=== PATIENT | female | born 1990 | race African-American/Black ===

== ENCOUNTER 2016-06-22 15:50 | Emergency (ER) | payer MEDICAID ==
[2016-06-22] MEDS ORDERED: LORazepam TAB(*) 1 MG PO ONE ×2 (16:06→17:17)
[2016-06-22 17:14] VITALS: BP 123/96
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
== END 2016-06-22 17:17 | disposition home or self-care (01) ==
LOC: ED 15:50
DX: F41.0 Panic disorder [episodic paroxysmal anxiety] (principal); R07.9 Chest pain, unspecified; R06.02 Shortness of breath; F17.210 Nicotine dependence, cigarettes, uncomplicated
CPT/HCPCS: 93005; 99283; A9270-GY

== ENCOUNTER 2016-12-26 17:12 | Emergency (ER) | payer MEDICAID, OTHER ==
[2016-12-26] MEDS ORDERED: Pantoprazole TAB (NF) 40 MG TAB PO ONE (19:34)
[2016-12-26] MEDS ORDERED: Omeprazole CAP* 20 MG PO ONE (20:00)
[2016-12-26 20:06] LABS: Hematocrit 36 % (35-47); Hemoglobin 12.1 g/dl (12.0-16.0); Mean Corpuscular HGB Conc 33 g/dl (31-36); Mean Corpuscular Hemoglobin 29 pg (27-31); Mean Corpuscular Volume 86 fL (80-97); Mean Platelet Volume 8 um3 (7.4-10.4); Red Blood Count 4.22 10^6/ul (4.0-5.4); Red Cell Distribution Width 14 % (10.5-15); White Blood Count 9.9 10^3/ul (3.5-10.8)
[2016-12-26 20:19] LABS: ALT 31 U/L (7-52); AST 12 U/L (13-39); Albumin 4.4 g/dL (3.2-5.2); Alkaline Phosphatase 77 U/L (34-104); Anion Gap 6 mmol/L (2-11); BUN/Creatinine Ratio 14.8 (8-20); Blood Urea Nitrogen 12 mg/dL (6-24); CO2 Carbon Dioxide 23 mmol/L (22-32); Calcium 9.4 mg/dL (8.6-10.3); Chloride 107 mmol/L (101-111); EGFR African American 110.8 (>60); EGFR Non-African American 86.2 (>60); Globulin 3.1 g/dL (2-4); Glucose 95 mg/dL (70-100); Lipase 31 U/L (11.0-82.0); Potassium 3.9 mmol/L (3.5-5.0); Sodium 136 mmol/L (133-145); Total Protein 7.5 g/dL (6.4-8.9)
[2016-12-26 20:46] VITALS: BP 127/67
[2016-12-26 20:46] LABS: Urine Bacteria Absent (Absent); Urine Bilirubin Negative (Negative); Urine Glucose Negative (Negative); Urine Nitrite Negative (Negative)
[2016-12-26] MEDS ORDERED: Acetaminophen TAB* 325 MG PO ONE (20:50)
--- NOTE | 2016-12-26 21:04 | RAD ---
CLINICAL HISTORY: Left flank pain COMPARISON: September 26, 2012 TECHNIQUE: Multiple contiguous axial CT scans were obtained of the abdomen and pelvis, without intravenous contrast enhancement. Coronal and sagittal multiplanar reformations are submitted for review. Oral contrast was not administered. FINDINGS: The study is limited by the lack of intravenous contrast. This limits evaluation of the solid organs and vasculature. LUNG BASES: The lung bases are clear. LIVER: The liver is diffusely low in attenuation compared to the spleen. There are no focal hepatic parenchymal masses. BILE DUCTS: There is no intrahepatic or extrahepatic biliary dilatation. GALLBLADDER: The gallbladder is not visualized. Surgical clips are noted in the gallbladder fossa. PANCREAS: The pancreas is normal, without mass or ductal dilatation. SPLEEN: Normal in size and appearance. UPPER GI TRACT: Evaluation of the gastrointestinal tract is limited by incomplete gastric distention. The upper GI tract is unremarkable. SMALL BOWEL AND MESENTERY: The small bowel is normal in contour, course, and caliber. There is no obstruction or dilatation. COLON: The colon is normal in contour, course, caliber. There is no pericolonic inflammatory change. There is a tubular, vermiform, hollow viscus that is blind ending, and originates from the cecum, consistent with a normal appendix. There is no periappendiceal inflammatory change. This is best seen on axial images 15 through 132 ADRENALS: Normal bilaterally. KIDNEYS: The kidneys are normal in shape, size, contour, and axis. There is no hydronephrosis or nephrolithiasis. BLADDER: The bladder is incompletely distended but is grossly normal. PELVIC ORGANS: The uterus and adnexa are grossly normal for technique. An IUD is noted. This may not be centered within the endometrial cavity based on the appearance on CT. AORTA: The aorta is normal. IVC: Unremarkable LYMPH NODES: There is no lymphadenopathy by size criteria. ABDOMINAL WALL: There is no evidence for abdominal wall hernia. BONES AND SOFT TISSUES: Unremarkable OTHER: None IMPRESSION: 1. FATTY LIVER. 2. NO HYDRONEPHROSIS OR NEPHROLITHIASIS. 3. AN IUD IS NOTED. THIS MAY NOT BE LOCATED CENTRALLY WITHIN THE ENDOMETRIAL CAVITY BASED ON THE CT APPEARANCE
[2016-12-26] MEDS ORDERED: Sulfamethox/Trimethoprim DS 800/160* TAB PO ONE (21:09)
--- NOTE | 2016-12-26 21:19 | ED ---
Jamey Dillon Rebecca, scribed for Shira Ramirezuel on 12/26/16 at 1931 . Abdominal Pain/Female - HPI Summary HPI Summary: Pt is a 26 y/o F who presents to ED c/o upper abdominal pain. Sx began 3 days ago and have been constant since onset. Pain is currently severe, ranked 8/10 and characterized as sharp. Sx aggravated and alleviated by nothing. Additionally c/o N/V/D. PSHx cholecystectomy. - History of Current Complaint Chief Complaint: EDAbdPain Stated Complaint: ABD PAINS Time Seen by Provider: 12/26/16 19:23 Hx Obtained From: Patient Onset/Duration: Lasting Days - 3 days, Still Present Severity Currently: Severe Pain Intensity: 8 Pain Scale Used: 0-10 Numeric Location: Other - Upper abdomen Character: Sharp Aggravating Factor(s): Nothing Alleviating Factor(s): Nothing Associated Signs and Symptoms: Positive: Nausea, Vomiting, Diarrhea Allergies/Adverse Reactions: Allergies Allergy/AdvReac Type Severity Reaction Status Date / Time No Known Allergies Allergy Verified 12/26/16 17:23 PMH/Surg Hx/FS Hx/Imm Hx Endocrine/Hematology History: Denies: Hx Diabetes Neurological History: Denies: Hx Seizures Psychiatric History: Reports: Hx Anxiety, Hx Depression - Surgical History Surgery Procedure, Year, and Place: CHOLECYSTECTOMY Infectious Disease History: No Infectious Disease History: Denies: Traveled Outside the [place] in Last 30 Days - Family History Known Family History: Positive: Cardiac Disease, Hypertension - Social History Alcohol Use: Occasionally Hx Substance Use: Yes Substance Use Type: Reports: Marijuana Substance Use Comment - Amount & Last Used: daily Hx Tobacco Use: Yes Smoking Status (MU): Former Smoker Type: Cigars Review of Systems Negative: Fever Positive: Abdominal Pain - Upper, Vomiting, Diarrhea, Nausea All Other Systems Reviewed And Are Negative: Yes Physical Exam - Summary Physical Exam Summary: Appearance: Well appearing, no pain distress Skin: warm, dry, reflects adequate perfusion Head/face: normal Eyes: EOMI, MAVIS ENT: normal Neck: supple, nontender Respiratory: CTA, edilson th sounds present Cardiovascular: RRR, pulses symmetrical Abdomen: tender in the epigastic and LUQ regions, soft Bowel: present Musculoskeletal: normal, strength/ROM intact Neuro: normal, sensory motor intact, A&Ox3 Triage Information Reviewed: Yes Vital Signs On Initial Exam: Initial Vitals Temp Pulse Resp BP Pulse Ox 97.4 F 84 18 124/75 100 12/26/16 17:17 12/26/16 17:17 12/26/16 17:17 12/26/16 17:17 12/26/16 17:17 Vital Signs Reviewed: Yes - [place] Coma Scale Coma Scale Total: 15 Diagnostics - Vital Signs Vital Signs Temp Pulse Resp BP Pulse Ox 12/26/16 18:50 98.7 F 80 16 124/83 99 12/26/16 17:17 97.4 F 84 18 124/75 100 - Laboratory Result Diagrams: 12/26/16 19:56 12/26/16 19:56 Lab Statement: Any lab studies that have been ordered have been reviewed, and results considered in the medical decision making process. - CT CT Abd/Pel CT Interpretation: No Acute Changes - 1. FATTY LIVER. 2. NO HYDRONEPHROSIS OR NEPHROLITHIASIS. 3. AN IUD IS NOTED. THIS MAY NOT BE LOCATED CENTRALLY WITHIN THE ENDOMETRIAL CAVITY BASED ON THE CT APPEARANCE ED physician reviewed this radiology report and agrees. CT Interpretation Completed By: Radiologist - EKG 1940 Cardiac Rate: NL - 83 bpm EKG Rhythm: Sinus Rhythm EKG Interpretation: No acute changes Re-Evaluation - Re-Evaluation First Eval Re-Evaluation Time: 21:12 Change: Improved Comment: Discussed CT results with the pt. Abdominal Pain Fem Course/Dx - Course Course Of Treatment: Pt is a 26 y/o F who presents to ED c/o upper abdominal pain. Sx began 3 days ago and have been constant since onset. Pain is currently severe, ranked 8/10 and characterized as sharp. Sx aggravated and alleviated by nothing. Additionally c/o N/V/D. PSHx cholecystectomy. EKG reveals sinus rhythm with no acute changes. CT Abd/Pel reveals "1. FATTY LIVER. 2. NO HYDRONEPHROSIS OR NEPHROLITHIASIS. 3. AN IUD IS NOTED. THIS MAY NOT BE LOCATED CENTRALLY WITHIN THE ENDOMETRIAL CAVITY BASED. ON THE CT APPEARANCE." UA reveals urine color: yellow, appearance: clear, blood: 2+, leukocyte esterase : 1+, WBC: 1+, RBC: 1+ and negative for ptoein, ketones and nitrate. In the ED course, pt was administered Tylenol and Prilosec. Pt will be D/C to home with Dx of UTI and abdominal pain with Rx for Protonix and Bactrim and a follow up with her PCP. She understands and agrees. Elevated BP noted and advised to f/u with PCP. - Diagnoses Provider Diagnoses: Abdominal pain, UTI (urinary tract infection) Discharge - Discharge Plan Condition: Stable Disposition: HOME Prescriptions: Pantoprazole TAB (NF) [Protonix TAB (NF)] 40 mg PO DAILY #30 tab Sulfamethox/Trimethoprim DS* [Bactrim DS 800/160 TAB*] 1 tab PO BID #10 tab Patient Education Materials: Acute Abdominal Pain (ED), Urinary Tract Infection in Women (ED) Referrals: [facility] [place] [facility] [Outside] The documentation as recorded by the Jamey hernandez Rebecca accurately reflects the service I personally performed and the decisions made by James pinzon Emmanuel.
== END 2016-12-26 21:43 | disposition home or self-care (01) ==
LOC: ED 17:12
DX: R11.2 Nausea with vomiting, unspecified (principal); R19.7 Diarrhea, unspecified; R10.10 Upper abdominal pain, unspecified; N39.0 Urinary tract infection, site not specified; Z87.891 Personal history of nicotine dependence
CPT/HCPCS: 36415; 74176; 80053; 81003; 81015; 83690; 84484; 84702; 85025; 85610; 85730; 86703; 87077; 87086; 93005; 99284; A9270-GY

== ENCOUNTER 2017-08-15 15:28 | Emergency (ER) | payer OTHER ==
[2017-08-15] MEDS ORDERED: NS 0.9% 1000 ML* 1,000 ML IV ONE (17:33)
[2017-08-15] MEDS ORDERED: Lidocaine 2% VISCOUS* 15 ML UDC PO ONE (17:40)
[2017-08-15] MEDS ORDERED: Al Hydrox/Mg Hydrox/Simet LIQ* 30 ML UDC PO ONE (17:40)
[2017-08-15] MEDS ORDERED: Ketorolac INJ* 30 MG/ML 1 ML VIAL IV PUSH ONE (17:40)
[2017-08-15 18:16] LABS: ABS Basophils 0 10^3/ul (0-0.2); ABS Eosinophils 0.3 10^3/ul (0-0.6); ABS Lymphocytes 2.1 10^3/ul (1.0-4.8); ABS Monocytes 0.4 10^3/ul (0-0.8); ABS Neutrophils 7.4 10^3/ul (1.5-7.7); ABS Nucleated RBC 0 10^3/ul; Eosinophil % 3.1 % (0-6); Hematocrit 37 % (35-47); Hemoglobin 12.4 g/dl (12.0-16.0); Lymphocyte % 20.4 % (25-47); Mean Corpuscular HGB Conc 34 g/dl (31-36); Mean Corpuscular Hemoglobin 29 pg (27-31); Mean Corpuscular Volume 86 fL (80-97); Mean Platelet Volume 7.7 um3 (7.4-10.4); Nucleated Red Blood Cells % 0; Platelet Count 283 10^3/ul (150-450); Red Blood Count 4.29 10^6/ul (4.0-5.4); Red Cell Distribution Width 13 % (10.5-15); White Blood Count 10.3 10^3/ul (3.5-10.8)
[2017-08-15 18:33] LABS: EGFR Non-African American 89.3 (>60)
--- NOTE | 2017-08-15 19:12 | ED ---
HPI Chest Pain - HPI Summary HPI Summary: 27 female presents with headache, chest pain, abdominal pain today. She states she has had these symptoms before but never together. She admits to lightheaded. She states she has been nauseous but denies any vomiting. She has a past medical history of having her gallbladder removed. she is a smoker. She denies any family history of cardiac disease. She denies any cough. She was occasional shortness of breath. She states that the chest feels like a tightness in her chest. It also has a burning sensation. She states her headache is typical of her normal headaches. She hasn't tried anything for her headache. This is not the worst headache of her life. She denies a sore throat. She denies any fevers. She denies any neck stiffness. She denies any pain with urination. - History of Current Complaint Chief Complaint: EDGeneral Time Seen by Provider: 08/15/17 17:27 Pain Intensity: 8 - Allergy/Home Medications Allergies/Adverse Reactions: Allergies Allergy/AdvReac Type Severity Reaction Status Date / Time No Known Allergies Allergy Verified 08/15/17 15:42 PMH/Surg Hx/FS Hx/Imm Hx Endocrine/Hematology History: Denies: Hx Diabetes Neurological History: Denies: Hx Seizures Psychiatric History: Reports: Hx Anxiety, Hx Depression - Surgical History Surgery Procedure, Year, and Place: CHOLECYSTECTOMY Infectious Disease History: No Infectious Disease History: Denies: Traveled Outside the [place] in Last 30 Days - Family History Known Family History: Positive: Cardiac Disease, Hypertension - Social History Alcohol Use: Occasionally Hx Substance Use: Yes Substance Use Type: Reports: Marijuana Substance Use Comment - Amount & Last Used: daily Hx Tobacco Use: Yes Smoking Status (MU): Former Smoker Type: Cigars Review of Systems Negative: Fever Positive: Chest Pain Positive: Shortness Of Breath Positive: Abdominal Pain Positive: Headache All Other Systems Reviewed And Are Negative: Yes Physical Exam Triage Information Reviewed: Yes Vital Signs On Initial Exam: Initial Vitals Temp Pulse Resp BP Pulse Ox 97.9 F 80 20 131/73 98 08/15/17 15:30 08/15/17 15:30 08/15/17 15:30 08/15/17 15:30 08/15/17 15:30 Vital Signs Reviewed: Yes Appearance: Positive: Well-Appearing Skin: Positive: Warm, Dry Head/Face: Positive: Normal Head/Face Inspection Eyes: Positive: Normal, Conjunctiva Clear Respiratory/Lung Sounds: Positive: Clear to Auscultation, Breath Sounds Present Cardiovascular: Positive: Normal, RRR Abdomen Description: Positive: Soft, Other: - mild epigastric pain Bowel Sounds: Positive: Present Musculoskeletal: Positive: Normal Neurological: Positive: Sensory/Motor Intact, Alert, Oriented to Person Place, Time, CN Intact II-III Psychiatric: Positive: Normal Diagnostics - Vital Signs Vital Signs Temp Pulse Resp BP Pulse Ox 08/15/17 18:30 80 113/58 100 08/15/17 18:09 91 99 08/15/17 18:07 149/91 08/15/17 15:30 97.9 F 80 20 131/73 98 - Laboratory Lab Results: Lab Results 08/15/17 08/15/17 08/15/17 Range/Units 17:45 17:45 17:45 WBC 10.3 (3.5-10.8) 10^3/ul RBC 4.29 (4.0-5.4) 10^6/ul Hgb 12.4 (12.0-16.0) g/dl Hct 37 (35-47) % MCV 86 (80-97) fL MCH 29 (27-31) pg MCHC 34 (31-36) g/dl RDW 13 (10.5-15) % Plt Count 283 (150-450) 10^3/ul MPV 7.7 (7.4-10.4) um3 Neut % (Auto) 72.3 (38-83) % Lymph % (Auto) 20.4 L (25-47) % [place] % (Auto) 3.9 (0-7) % Eos % (Auto) 3.1 (0-6) % Baso % (Auto) 0.3 (0-2) % Absolute Neuts (auto) 7.4 (1.5-7.7) 10^3/ul Absolute Lymphs (auto) 2.1 (1.0-4.8) 10^3/ul Absolute Monos (auto) 0.4 (0-0.8) 10^3/ul Absolute Eos (auto) 0.3 (0-0.6) 10^3/ul Absolute Basos (auto) 0 (0-0.2) 10^3/ul Absolute Nucleated RBC 0 10^3/ul Nucleated RBC % 0 D-Dimer, Quantitative < 200 (Less Than 230) ng/mL Sodium 137 L (139-145) mmol/L Potassium 3.5 (3.5-5.0) mmol/L Chloride 105 (101-111) mmol/L Carbon Dioxide 22 (22-32) mmol/L Anion Gap 10 (2-11) mmol/L BUN 10 (6-24) mg/dL Creatinine 0.78 (0.51-0.95) mg/dL Est GFR ( Amer) 114.8 (>60) Est GFR (Non-Af Amer) 89.3 (>60) BUN/Creatinine Ratio 12.8 (8-20) Glucose 115 H (70-100) mg/dL Calcium 9.4 (8.6-10.3) mg/dL Total Bilirubin 0.50 (0.2-1.0) mg/dL AST 12 L (13-39) U/L ALT 31 (7-52) U/L Alkaline Phosphatase 80 (34-104) U/L Troponin I 0.00 (<0.04) ng/mL C-Reactive Protein 3.10 (< 5.00) mg/L Total Protein 7.7 (6.4-8.9) g/dL Albumin 4.3 (3.2-5.2) g/dL Globulin 3.4 (2-4) g/dL Albumin/Globulin Ratio 1.3 (1-3) Beta HCG, Quant < 0.60 mIU/mL Result Diagrams: 08/15/17 17:45 08/15/17 17:45 Lab Statement: Any lab studies that have been ordered have been reviewed, and results considered in the medical decision making process. - Radiology chest Xray Interpretation: No Acute Changes Radiology Interpretation Completed By: Radiologist - EKG No standard instances Cardiac Rate: NL EKG Rhythm: Sinus Rhythm EKG Interpretation: sinus rhythm Re-Evaluation - Re-Evaluation First Eval Change: Improved Comment: feeling better after GI cocktail and toradol. headache and abdominal pain resolved Chest Pain Course/Dx - Course Course Of Treatment: 27 female presents with headache, chest pain, abdominal pain today. She states she has had these symptoms before but never together. She admits to lightheaded. She states she has been nauseous but denies any vomiting. She has a past medical history of having her gallbladder removed. she is a smoker. She denies any family history of cardiac disease. She denies any cough. She was occasional shortness of breath. She states that the chest feels like a tightness in her chest. It also has a burning sensation. She states her headache is typical of her normal headaches. She hasn't tried anything for her headache. This is not the worst headache of her life. She denies a sore throat. She denies any fevers. She denies any neck stiffness. She denies any pain with urination. On exam has lungs clear to auscultation. Abdomen tenderness epigastric. Normal neuro exam. nonreproducible chest pain. lab within normal limits. EKG normal. Chest x-ray normal. patient feeling better after toradol and gi cocktail. all symptoms have resolved. will send home with nausea meds. patient understand and agrees with plan. - Chest Pain Differential Diagnosis/HQI/PQRI: Chest Wall, Lower Respiratory Infection, Pulmonary Embolism - Diagnoses Provider Diagnoses: Chest pain, Headache, Nausea Discharge - Sign-Out/Discharge Documenting (check all that apply): Discharge - Discharge Plan Condition: Good Disposition: HOME Prescriptions: Ondansetron ODT TAB* [Zofran 4 MG Odt TAB*] 4 mg PO Q6H PRN #12 tab.odt PRN Reason: Nausea Patient Education Materials: Noncardiac Chest Pain (ED) Referrals: No Primary Care Phys,NOPCP [Primary Care Provider] - Additional Instructions: Can take Zofran every 6 hours as needed for nausea Drink small amounts of fluid as tolerated Take ibuprofen or Tylenol for pain as needed every 6 hours Follow up with primary within 5 days Return to ED if develop any new or worsening symptoms - Billing Disposition and Condition Condition: GOOD Disposition: HOME
--- NOTE | 2017-08-15 19:24 | RAD ---
INDICATION: Chest pain and dizziness. COMPARISON: There are no prior studies available for comparison. TECHNIQUE: Dual-energy PA and lateral views of the chest were obtained. FINDINGS: The heart is within normal limits in size. Mediastinal and hilar contours appear within normal limits. The lungs are underinflated and clear. No pleural effusion is seen. IMPRESSION: NO EVIDENCE FOR ACUTE FINDING.
[2017-08-15 20:02] VITALS: BP 126/89
== END 2017-08-15 20:18 | disposition home or self-care (01) ==
LOC: ED 15:28
DX: R07.9 Chest pain, unspecified (principal); R51 Headache; R11.0 Nausea; Z87.891 Personal history of nicotine dependence; F41.9 Anxiety disorder, unspecified; F32.9 Major depressive disorder, single episode, unspecified
CPT/HCPCS: 36415; 71046; 80053; 84484; 84702; 85025; 85379; 86140; 93005; 96360; 96374; 99283; A9270-GY; J1885

== ENCOUNTER 2018-02-19 11:01 | Emergency (ER) | payer OTHER ==
[2018-02-19] MEDS ORDERED: LORazepam INJ* 2 MG/ML 1 ML VIAL IM ONE (11:04)
--- NOTE | 2018-02-19 11:12 | ED ---
Complex/Multi-Sys Presentation - HPI Summary HPI Summary: 28yo F with hx of anxiety presents with anxiousness, difficulty breathing, throat tightness and "feeling weird" since last night. She states she was out drinking (alcohol) and came home and went to bed. She awoke with these symptoms. Vomited once. Feeling nauseous. Denies CP, hand numbness or cramping. Not taking any meds. LMP 1wk ago. - History Of Current Complaint Time Seen by Provider: 02/19/18 11:04 Hx Obtained From: Patient - Allergies/Home Medications Allergies/Adverse Reactions: Allergies Allergy/AdvReac Type Severity Reaction Status Date / Time No Known Allergies Allergy Verified 02/19/18 11:10 Home Medications: Home Medications NK [No Home Medications Reported] 02/19/18 [History Confirmed 02/19/18] PMH/Surg Hx/FS Hx/Imm Hx Endocrine/Hematology History: Denies: Hx Diabetes Neurological History: Denies: Hx Seizures Psychiatric History: Reports: Hx Anxiety, Hx Depression - Surgical History Surgery Procedure, Year, and Place: CHOLECYSTECTOMY - Family History Known Family History: Positive: Cardiac Disease, Hypertension - Social History Alcohol Use: Occasionally Hx Substance Use: Yes Substance Use Type: Reports: Marijuana Substance Use Comment - Amount & Last Used: daily Hx Tobacco Use: Yes Smoking Status (MU): Former Smoker Type: Cigars Review of Systems Constitutional: Negative ENT: Negative Positive: Palpitations Positive: Shortness Of Breath Positive: Vomiting, Nausea Genitourinary: Negative Positive: Anxious All Other Systems Reviewed And Are Negative: Yes Physical Exam Triage Information Reviewed: Yes Completion Of Physical Exam Limited Due To: Dementia Appearance: Positive: Well-Nourished. Negative: No Pain Distress - anxious, tearful Skin: Positive: Warm, Skin Color Reflects Adequate Perfusion, Dry Eyes: Positive: EOMI ENT: Positive: Normal ENT inspection Neck: Positive: Nontender Respiratory/Lung Sounds: Positive: Clear to Auscultation, Breath Sounds Present Cardiovascular: Positive: Tachycardia Abdomen Description: Positive: Nontender Musculoskeletal: Positive: Normal, Strength/ROM Intact Neurological: Positive: Normal, Sensory/Motor Intact, Alert, Oriented to Person Place, Time Psychiatric: Positive: Anxious AVPU Assessment: Alert Re-Evaluation - Re-Evaluation First Eval Re-Evaluation Time: 12:00 Change: Improved Complex Multi-Symp Course/Dx Course Of Treatment: Pt feels much better with ativan. Her sx have resolved and she is able to eat/drink. Outpt prn vistaril. F/U PMD -- [facility] f/u given. - Diagnoses Differential Diagnoses/HQI/PQRI: Metabolic Abnormality, Other - panic attack, panic disorder Provider Diagnoses: Panic attack Discharge - Sign-Out/Discharge Documenting (check all that apply): Patient Departure - Discharge Plan Condition: Improved Disposition: HOME Patient Education Materials: Panic Attack (ED) Referrals: [facility] [Outside] [facility] [place] [facility] REFERRAL [Outside] Additional Instructions: Stay well hydrated. Call tomorrow to follow up with your doctor OR the [facility] here. Return if worse, new/recurrent symptoms or other concerns. Avoid alcohol. - Billing Disposition and Condition Condition: IMPROVED Disposition: Home - Attestation Statements Document Initiated by Scribe: No
[2018-02-19 12:33] VITALS: BP 120/86
== END 2018-02-19 12:31 | disposition home or self-care (01) ==
LOC: ED 11:01
DX: F41.0 Panic disorder [episodic paroxysmal anxiety] (principal); Z87.891 Personal history of nicotine dependence
CPT/HCPCS: 96372; 99282; J2060

== ENCOUNTER 2018-03-27 12:27 | Emergency (ER) | payer OTHER ==
[2018-03-27] MEDS ORDERED: LORazepam TAB(*) 1 MG PO ONE (12:57)
--- NOTE | 2018-03-27 13:18 | ED ---
Psychiatric Complaint - HPI Summary HPI Summary: Patient presents to the ED with symptoms of anxiety attack. She states she was having a verbal altercation with her boyfriend when her symptoms abruptly started. She states she is having tightness in her anterior chest which radiates to her back. Also send worsening SOB. She states she is very uncomfortable and also diaphoretic when she gets her anxiety attacks. She has Ativan at home, however has not been taking this medication. She denies any daily medication for anxiety or depression. She denies any cardiac history. - History Of Current Complaint Chief Complaint: EDShortnessOfBreath Time Seen by Provider: 03/27/18 12:34 Hx Obtained From: Patient ?: No Onset/Duration: Sudden Onset Timing: Constant Severity Initially: Moderate Severity Currently: Moderate Character: Anxious Aggravating Factor(s): Recent Stress Alleviating Factor(s): Nothing Associated Signs And Symptoms: Positive: Negative - Allergies/Home Medications Allergies/Adverse Reactions: Allergies Allergy/AdvReac Type Severity Reaction Status Date / Time No Known Allergies Allergy Verified 03/27/18 12:30 PMH/Surg Hx/FS Hx/Imm Hx Previously Healthy: Yes Endocrine/Hematology History: Denies: Hx Diabetes Neurological History: Denies: Hx Seizures Psychiatric History: Reports: Hx Anxiety, Hx Depression - Surgical History Surgery Procedure, Year, and Place: CHOLECYSTECTOMY - Immunization History Hx Pertussis Vaccination: No Immunizations Up to Date: Yes Infectious Disease History: No Infectious Disease History: Denies: Traveled Outside the [place] in Last 30 Days - Family History Known Family History: Positive: Cardiac Disease, Hypertension - Social History Occupation: Unemployed, Student Lives: With Family Alcohol Use: Occasionally Hx Substance Use: Yes Substance Use Type: Reports: Marijuana Substance Use Comment - Amount & Last Used: daily Hx Tobacco Use: Yes Smoking Status (MU): Current Some Day Smoker Type: Cigars Review of Systems Constitutional: Negative Negative: Fever, Chills, Fatigue, Skin Diaphoresis Negative: Epistaxis, Dental Pain Positive: Chest Pain. Negative: Palpitations Positive: Shortness Of Breath. Negative: Cough Genitourinary: Negative Positive: no symptoms reported, see HPI Negative: Arthralgia, Myalgia Skin: Negative Neurological: Negative Positive: Anxious All Other Systems Reviewed And Are Negative: Yes Physical Exam Triage Information Reviewed: Yes Vital Signs On Initial Exam: Initial Vitals Temp Pulse Resp BP Pulse Ox 98.7 F 99 32 156/115 99 03/27/18 12:29 03/27/18 12:29 03/27/18 12:29 03/27/18 12:29 03/27/18 12:29 Vital Signs Reviewed: Yes Appearance: Positive: Well-Appearing, Well-Nourished Skin: Positive: Warm, Skin Color Reflects Adequate Perfusion Head/Face: Positive: Normal Head/Face Inspection Eyes: Positive: EOMI, MAVIS, Conjunctiva Clear Neck: Positive: Supple, No Lymphadenopathy Respiratory/Lung Sounds: Positive: Clear to Auscultation, Breath Sounds Present Cardiovascular: Positive: RRR, Pulses are Symmetrical in both Upper and Lower Extremities Musculoskeletal: Positive: Normal, Strength/ROM Intact Neurological: Positive: Speech Normal Psychiatric: Positive: Anxious AVPU Assessment: Alert Diagnostics - Vital Signs Vital Signs Temp Pulse Resp BP Pulse Ox 03/27/18 13:13 16 03/27/18 12:29 98.7 F 99 32 156/115 99 - Laboratory Lab Results: Lab Results 03/27/18 Range/Units 12:46 D-Dimer, Quantitative < 200 (Less Than 230) ng/mL Lab Statement: Any lab studies that have been ordered have been reviewed, and results considered in the medical decision making process. Course/Dx - Course Course Of Treatment: Patient is evaluated for sudden onset shortness of breath and chest pressure which radiates through to the back. She denies any cardiac history. She states this is her typical anxiety attack and this is the third episode. D-dimer obtained due to sudden onset, tachycardia on arrival and high blood pressure. D-dimer less than 200. She is given Ativan with good relief. She states she is feeling much improved and would like to be discharged at this time. I've advised she have further workup through her PCP. - Differential Dx/Clinical Impression Differential Diagnosis/HQI/PQRI: Positive: Anxiety Provider Diagnosis: Anxiety Discharge - Sign-Out/Discharge Documenting (check all that apply): Patient Departure - Discharge Plan Condition: Stable Disposition: HOME Patient Education Materials: Anxiety (ED) Forms: *Work Release Referrals: No Primary Care Phys,NOPCP [Primary Care Provider] - Additional Instructions: Ativan as needed for anxiety symptoms - Billing Disposition and Condition Condition: STABLE Disposition: Home
[2018-03-27 14:58] VITALS: BP 127/79
== END 2018-03-27 14:58 | disposition home or self-care (01) ==
LOC: ED 12:27
DX: F41.9 Anxiety disorder, unspecified (principal); F17.210 Nicotine dependence, cigarettes, uncomplicated
CPT/HCPCS: 36415; 85379; 99283; A9270-GY

== ENCOUNTER 2018-09-13 19:36 | Emergency (ER) | payer OTHER ==
--- NOTE | 2018-09-13 19:53 | ED ---
HPI Chest Pain - HPI Summary HPI Summary: Patient brought by EMS complains of sudden onset sternal chest pain, SOB, hot flashes, lightheadedness at 7 PM tonight after eating pizza. Chest pain here in the ED much improved, denies active SOB, lightheadedness. EMS states BGL was 110. Also states patient was not unconscious but appeared to require some stimulus to respond to EMS. Also states patient was hyperventilating. Patient has history of heartburn, history of CB and similar symptoms with anxiety attack. Denies fever, cough, sore throat, N/V/D, abdominal pain, change in urine, change in BM. Denies OCP, history of recent surgery or trauma, history of blood clot, history of unilateral leg pain, history of long travel, history of immobility. Medical history is obesity, depression, anxiety. Denies cardiac history. Occasional EtOH, denies any legal or illegal stimulants. - History of Current Complaint Chief Complaint: EDChestPainROMI Time Seen by Provider: 09/13/18 19:42 Hx Obtained From: Patient Onset/Duration: Started Hours Ago Timing: Constant Initial Severity: Severe Current Severity: Mild Pain Intensity: 7 Pain Scale Used: 0-10 Numeric Chest Pain Location: Mid Sternal Chest Pain Radiates: No Character: Burning Aggravating Factor(s): Nothing Alleviating Factor(s): Nothing Associated Signs and Symptoms: Positive: Chest Pain, Weakness, Shortness of Breath, Lightheadedness - Allergy/Home Medications Allergies/Adverse Reactions: Allergies Allergy/AdvReac Type Severity Reaction Status Date / Time No Known Allergies Allergy Verified 03/27/18 12:30 Home Medications: Home Medications NK [No Home Medications Reported] 09/13/18 [History Confirmed 09/13/18] PMH/Surg Hx/FS Hx/Imm Hx Endocrine/Hematology History: Denies: Hx Diabetes Cardiovascular History: Denies: Hx Hypertension History: Denies: Hx Dialysis Sensory History: Denies: Hx Eye Prosthesis Opthamlomology History: Denies: Hx Legally Blind EENT History: Denies: Hx Deafness Neurological History: Denies: Hx CVA, Hx Seizures Psychiatric History: Reports: Hx Anxiety, Hx Depression - Surgical History Surgery Procedure, Year, and Place: CHOLECYSTECTOMY Infectious Disease History: No Infectious Disease History: Denies: Traveled Outside the [place] in Last 30 Days - Family History Known Family History: Positive: Cardiac Disease, Hypertension - Social History Alcohol Use: Occasionally Hx Substance Use: Yes Substance Use Type: Reports: Marijuana Substance Use Comment - Amount & Last Used: daily Hx Tobacco Use: Yes Smoking Status (MU): Light Every Day Tobacco Smoker Type: Cigars Review of Systems Constitutional: Negative Eyes: Negative ENT: Negative Positive: Chest Pain Positive: Shortness Of Breath Gastrointestinal: Negative Genitourinary: Negative Musculoskeletal: Negative Skin: Negative Positive: Weakness Psychological: Normal All Other Systems Reviewed And Are Negative: Yes Physical Exam - Summary Physical Exam Summary: Chest pain not reproducible. RRR. Lung sounds clear to auscultation bilaterally. Triage Information Reviewed: Yes Vital Signs On Initial Exam: Initial Vitals Temp Pulse Resp BP Pulse Ox 98.3 F 64 16 135/91 100 09/13/18 19:39 09/13/18 19:39 09/13/18 19:39 09/13/18 19:39 09/13/18 19:39 Vital Signs Reviewed: Yes Appearance: Positive: Well-Appearing Skin: Positive: Warm Head/Face: Positive: Normal Head/Face Inspection Eyes: Positive: Normal Neck: Positive: Supple Respiratory/Lung Sounds: Positive: Clear to Auscultation Cardiovascular: Positive: Normal Abdomen Description: Positive: Nontender Musculoskeletal: Positive: Normal Neurological: Positive: Normal Psychiatric: Positive: Normal AVPU Assessment: Alert - Daniel Coma Scale Best Eye Response: 4 - Spontaneous Best Motor Response: 6 - Obeys Commands Best Verbal Response: 5 - Oriented Coma Scale Total: 15 Diagnostics - Vital Signs Vital Signs Temp Pulse Resp BP Pulse Ox 09/13/18 19:39 98.3 F 64 16 135/91 100 - Laboratory Result Diagrams: 09/13/18 20:02 09/13/18 20:02 Lab Statement: Any lab studies that have been ordered have been reviewed, and results considered in the medical decision making process. Chest Pain Course/Dx - Course Course Of Treatment: Patient brought by EMS complains of sudden onset sternal chest pain, SOB, hot flashes, lightheadedness at 7 PM tonight after eating pizza. Chest pain here in the ED much improved, denies active SOB, lightheadedness. EMS states BGL was 110. Also states patient was not unconscious but appeared to require some stimulus to respond to EMS. Also states patient was hyperventilating. Patient has history of heartburn, history of CB and similar symptoms with anxiety attack. Denies fever, cough, sore throat, N/V/D, abdominal pain, change in urine, change in BM. Denies OCP, history of recent surgery or trauma, history of blood clot, history of unilateral leg pain, history of long travel, history of immobility. Medical history is obesity, depression, anxiety. Denies cardiac history. Occasional EtOH, denies any legal or illegal stimulants. Physical exam:Chest pain not reproducible. RRR. Lung sounds clear to auscultation bilaterally. Vital signs within normal limits. Symptoms resolved. perc neg. - Diagnoses Provider Diagnoses: Atypical chest pain Discharge - Sign-Out/Discharge Documenting (check all that apply): Patient Departure Patient Received Moderate/Deep Sedation with Procedure: No - Discharge Plan Condition: Stable Disposition: HOME Patient Education Materials: Chest Pain (ED) Referrals: No Primary Care Phys,NOPCP [Primary Care Provider] - [facility] [Outside] Additional Instructions: [facility] with [facility] for further evaluation. Return to the ED for any new or worsening symptoms. - Billing Disposition and Condition Condition: STABLE Disposition: Home
[2018-09-13 20:08] LABS: ABS Eosinophils 0.5 10^3/ul (0-0.6); ABS Lymphocytes 2.3 10^3/ul (1.0-4.8); ABS Monocytes 0.6 10^3/ul (0-0.8); ABS Neutrophils 6.1 10^3/ul (1.5-7.7); Eosinophil % 5.1 %; Hematocrit 36 % (35-47); Hemoglobin 12.2 g/dL (12.0-16.0); Lymphocyte % 24.4 %; Mean Corpuscular HGB Conc 34 g/dL (31-36); Mean Corpuscular Hemoglobin 29 pg (27-31); Mean Corpuscular Volume 86 fL (80-97); Mean Platelet Volume 7.5 fL (7.4-10.4); Platelet Count 262 10^3/uL (150-450); Red Blood Count 4.19 10^6 /uL (3.70-4.87); Red Cell Distribution Width 14 % (10.5-15); White Blood Count 9.5 10^3/uL (3.5-10.8)
[2018-09-13 20:33] LABS: HCG Pregnancy < 0.60 mIU/mL
[2018-09-13 20:35] LABS: Urine Appearance Cloudy; Urine Bacteria Absent (Absent); Urine Bilirubin Negative (Negative); Urine Blood Negative (Negative); Urine Color Yellow; Urine Glucose Negative (Negative); Urine Ketones Negative (Negative); Urine Nitrite Negative (Negative); Urine Protein Negative (Negative); Urine Red Blood Cell Trace(0-2/hpf) (Absent); Urine Specific Gravity 1.012 (1.010-1.030); Urine Squamous Epithelial Cell Present (Absent); Urine Urobilinogen Negative (Negative); Urine White Blood Cell Trace(0-5/hpf) (Absent)
[2018-09-13 20:48] LABS: ALT 69 U/L (7-52); AST 28 U/L (13-39); Albumin 4.1 g/dL (3.2-5.2); Albumin/Globulin Ratio 1.3 (1-3); Alkaline Phosphatase 73 U/L (34-104); Anion Gap 6 mmol/L (2-11); BUN/Creatinine Ratio 14.5 (8-20); Blood Urea Nitrogen 10 mg/dL (6-24); C Reactive Protein 3.71 mg/L (<8.01); CO2 Carbon Dioxide 23 mmol/L (22-32); Calcium 9.4 mg/dL (8.6-10.3); Chloride 108 mmol/L (101-111); EGFR African American 123.5 (>60); EGFR Non-African American 102.1 (>60); Globulin 3.1 g/dL (2-4); Glucose 123 mg/dL (70-100); Potassium 3.8 mmol/L (3.5-5.0); Sodium 137 mmol/L (135-145); Total Protein 7.2 g/dL (6.4-8.9)
[2018-09-13 21:34] LABS: Urine Benzodiazepine Screen None Detected (None Detect); Urine Opiates Screen None Detected (None Detect)
[2018-09-13] MEDS ORDERED: Lidocaine 2% VISCOUS* 15 ML UDC PO ONE (22:19)
[2018-09-13] MEDS ORDERED: Al Hydrox/Mg Hydrox/Simet LIQ* 30 ML UDC PO ONE (22:19)
[2018-09-14 00:48] VITALS: BP 134/71
== END 2018-09-14 00:40 | disposition home or self-care (01) ==
LOC: ED 19:36
DX: R07.89 Other chest pain (principal); R53.1 Weakness; R06.02 Shortness of breath; R42 Dizziness and giddiness; F17.210 Nicotine dependence, cigarettes, uncomplicated
CPT/HCPCS: 36415; 71046; 80053; 80307; 81003; 81015; 83690; 84443; 84484; 84702; 85025; 86140; 87086; 93005; 99284; A9270-GY

== ENCOUNTER 2019-01-22 21:05 | Emergency (ER) | payer MEDICARE, MEDICAID ==
--- OUTSIDE RECORDS SUMMARY | 2019-01-22 21:15 | XMS REPORT | Continuity of Care Document ---
:1990 External Reference #:[id number] Author Name Donna Perry DO (transmitted by agent of provider Shira Fierro) Address [address] [address] Care Team Providers Name Role Phone Donna Perry DO - Hospitalist Care Team Information Assistant Child Care Teacher Problems Description No Information Available Social History Type Date Description Comments Sex Unknown ETOH Use Currently consumes alcohol Tobacco Use Start: Unknown End: Patient is a former smoker Unknown Recreational Drug Use Regularly uses Marijuana Smoking Status Reviewed: 12/15/18 Patient is a former smoker Exercise Type/Frequency Walks daily Allergies, Adverse Reactions, Alerts Description No Known Drug Allergies Medications Active Medications SIG Qnty Indications Ordering Provider Date Clotrimazole apply to feet 28gm B35.3 Donna Perry DO 12/15/2018 Anti-Fungal twice per day 1% Cream Fluoxetine HCL (PMDD) 1 by mouth 30caps F32.9 Donna Perry DO 2018 every day 10mg Capsules Immunizations CPT Code Status Date Vaccine Lot # [id number] Given 12/15/2018 Tdap - Tetanus/Diptheria/Acellular Pertussis [id number] Vital Signs Date Vital Result Comment 12/15/2018 11:44am Height 64.25 inches 5'4.25" Weight 281.25 lb Heart Rate 82 /min BP Systolic 121 mmHg BP Diastolic 85 mmHg Body Temperature 97.7 F O2 % BldC Oximetry 98 % BMI (Body Mass Index) 47.9 kg/m2 Results Description No Information Available Procedures Description No Information Available Medical Devices Description No Information Available Encounters Description No Information Available Assessments Date Code Description Provider 12/15/2018 B35.3 Tinea pedis Donna Perry DO 12/15/2018 F32.9 Major depressive disorder, single episode, Donna Perry DO unspecified 12/15/2018 E66.3 Overweight Donna Perry DO 12/15/2018 Z23 Encounter for immunization Donna Perry DO Plan of Treatment Future Appointment(s):01/08/2019 11:00 am - Donna Perry DO at [facility] - [address]/15/2018 - Donna Perry DOB35.3 Tinea pedisNew Medication :Clotrimazole Anti-Fungal 1 % - apply to feet twice per dayF32.9 Major depressive disorder, single episode, unspecifiedNew Medication:Fluoxetine HCL ( PMDD) 10 mg - 1 by mouth every dayReferral:[facility], [facility] Health/CounselorFollow up:3-4 weeks we can do a pap at that timeE66.3 [id number] Encounter for immunization Functional Status Description No Information Available Mental Status Description No Information Available Referrals Refer to Dr Reason for Referral Status Appt Date [facility] Created [address] [place] [address] [phone]
[2019-01-23] MEDS ORDERED: PROCHLORPERAZINE INJ 5 MG/ML 2 ML VIAL IV ONE (01:17)
[2019-01-23] MEDS ORDERED: Ketorolac INJ* 30 MG/ML 1 ML VIAL IV PUSH ONE (01:17)
[2019-01-23] MEDS ORDERED: NS 0.9% 1000 ML** 1,000 ML IV ONE (01:17)
[2019-01-23] MEDS ORDERED: diPHENhydraMINE IV* 50 MG/ML 1 ml VIAL (BENADRYL) SLOW PUSH ONE (01:18)
--- NOTE | 2019-01-23 01:21 | ED ---
Headache - HPI Summary HPI Summary: 28 year old female presents with headache today. Has history of migraines. States that this is similar location as her normal migraines. She notes nausea but no vomiting. She admits to abdominal pain. She states the pain does go down her neck. No fevers. No sinus congestion. She admits to photophobia. No sore throat. She took some Excedrin and ibuprofen without relief. not worst headache of life. no visual changes. states that in waiting room she developed the abdominal pain. states it is all over. no urinary symptoms. no chest pain or SOB. no cough. no diarrhea or constipation. - History Of Current Complaint Chief Complaint: EDHeadache Stated Complaint: MIGRAINES PER EMS Time Seen by Provider: 01/23/19 01:07 - Allergies/Home Medications Allergies/Adverse Reactions: Allergies Allergy/AdvReac Type Severity Reaction Status Date / Time No Known Allergies Allergy Verified 01/23/19 01:55 Home Medications: Home Medications FLUoxetine CAP* [Prozac CAP*] 10 mg PO DAILY 01/23/19 [History Confirmed ] PMH/Surg Hx/FS Hx/Imm Hx Endocrine/Hematology History: Denies: Hx Diabetes Cardiovascular History: Denies: Hx Hypertension History: Denies: Hx Dialysis Sensory History: Denies: Hx Eye Prosthesis, Hx Legally Blind, Hx Deafness Opthamlomology History: Denies: Hx Eye Prosthesis, Hx Legally Blind Neurological History: Denies: Hx CVA, Hx Seizures Psychiatric History: Reports: Hx Anxiety, Hx Attention Deficit Hyperactivity Disorder, Hx Depression - Surgical History Surgery Procedure, Year, and Place: CHOLECYSTECTOMY Infectious Disease History: No Infectious Disease History: Denies: Traveled Outside the [place] in Last 30 Days - Family History Known Family History: Positive: Cardiac Disease, Hypertension - Social History Alcohol Use: Occasionally Hx Substance Use: Yes Substance Use Type: Reports: Marijuana Substance Use Comment - Amount & Last Used: daily Hx Tobacco Use: Yes Smoking Status (MU): Light Every Day Tobacco Smoker Type: Cigars Review of Systems Negative: Fever Negative: Chest Pain Negative: Shortness Of Breath Positive: Abdominal Pain, Nausea Positive: Headache All Other Systems Reviewed And Are Negative: Yes Physical Exam Triage Information Reviewed: Yes Vital Signs On Initial Exam: Initial Vitals Temp Pulse Resp BP Pulse Ox 98.4 F 71 18 140/92 93 01/22/19 21:06 01/22/19 21:06 01/22/19 21:06 01/22/19 21:06 01/22/19 21:06 Vital Signs Reviewed: Yes Appearance: Positive: Well-Appearing Skin: Positive: Warm, Dry Head/Face: Positive: Normal Head/Face Inspection Eyes: Positive: Normal, EOMI, MAVIS, Conjunctiva Clear ENT: Positive: Normal ENT inspection, Pharynx normal, TMs normal Respiratory/Lung Sounds: Positive: Clear to Auscultation, Breath Sounds Present Cardiovascular: Positive: Normal, RRR Musculoskeletal: Positive: Normal Neurological: Positive: Sensory/Motor Intact, Alert, Oriented to Person Place, Time, CN Intact II-III Psychiatric: Positive: Normal - Daniel Coma Scale Best Eye Response: 4 - Spontaneous Best Motor Response: 6 - Obeys Commands Best Verbal Response: 5 - Oriented Coma Scale Total: 15 Diagnostics - Vital Signs Vital Signs Temp Pulse Resp BP Pulse Ox 01/22/19 23:56 97.3 F 57 19 121/84 92 01/22/19 21:06 98.4 F 71 18 140/92 93 - Laboratory Result Diagrams: 01/23/19 01:28 01/23/19 01:25 Lab Statement: Any lab studies that have been ordered have been reviewed, and results considered in the medical decision making process. Re-Evaluation - Re-Evaluation First Eval Re-Evaluation Time: 02:01 Comment: states that she feels weird after medications, states everything hurts. is crying in room. Second Eval Re-Evaluation Time: 02:19 Change: Improved Comment: feeling better, will discharge to home Headache Course/Dx - Course Course Of Treatment: 28 year old female presents with headache today. Has history of migraines.. States that this is similar location as her normal migraines. She notes nausea but no vomiting. She admits to abdominal pain. She states the pain does go down her neck. No fevers. No sinus congestion. She admits to photophobia. No sore throat. She took some Excedrin and ibuprofen without relief. On exam has a normal neuro exam. not in any acute pain distress. Has minimal diffuse abdominal pain. wbc normal. crp normal. gave pain medication and patient states that now she feels worst. may be due to benadryl IV. will give ativan. patient feeling better after ativan. will discharge to have follow up with primary. patient understand and agrees with plan. - Diagnoses Differential Diagnosis/HQI/PQRI: Migraine, Tension Headache, Viral Syndrome Provider Diagnoses: Headache Discharge ED - Sign-Out/Discharge Documenting (check all that apply): Patient Departure Patient Received Moderate/Deep Sedation with Procedure: No - Discharge Plan Condition: Good Disposition: HOME Patient Education Materials: Acute Headache (ED) Referrals: No Primary Care Phys,NOPCP [Primary Care Provider] - Additional Instructions: follow up with primary Take tyenlol or ibuprofen every 6 hours as need for headache Return to ED if develop any new or worsening symptoms - Billing Disposition and Condition Condition: GOOD Disposition: Home
[2019-01-23 01:36] LABS: ABS Basophils 0.1 10^3/ul (0-0.2); ABS Eosinophils 0.3 10^3/ul (0-0.6); ABS Lymphocytes 2.7 10^3/ul (1.0-4.8); ABS Monocytes 0.5 10^3/ul (0-0.8); ABS Neutrophils 4.8 10^3/ul (1.5-7.7); Eosinophil % 3.7 %; Hematocrit 35 % (35-47); Lymphocyte % 32.2 %; Mean Corpuscular HGB Conc 34 g/dL (31-36); Mean Corpuscular Hemoglobin 30 pg (27-31); Mean Corpuscular Volume 87 fL (80-97); Mean Platelet Volume 7.6 fL (7.4-10.4); Nucleated Red Blood Cells % 0.1; Platelet Count 305 10^3/uL (150-450); Red Blood Count 4.07 10^6 /uL (3.70-4.87); Red Cell Distribution Width 13 % (10-15); White Blood Count 8.3 10^3/uL (3.5-10.8)
[2019-01-23 01:54] LABS: Albumin 4.2 g/dL (3.2-5.2); Albumin/Globulin Ratio 1.4 (1-3); BUN/Creatinine Ratio 15.9 (8-20); C Reactive Protein 5.33 mg/L (<8.01); Calcium 9.2 mg/dL (8.6-10.3); EGFR African American 101.2 (>60); EGFR Non-African American 83.6 (>60); Globulin 3.1 g/dL (2-4); Magnesium 2.1 mg/dL (1.9-2.7); Potassium 3.6 mmol/L (3.5-5.0); Total Bilirubin 0.6 mg/dL (0.2-1.0); Total Protein 7.3 g/dL (6.4-8.9)
[2019-01-23] MEDS ORDERED: LORazepam INJ* 2 MG/ML 1 ML VIAL IV PUSH ONE (02:00)
[2019-01-23] MEDS ORDERED: Lorazepam PYXIS KEY PRN (02:00)
[2019-01-23 02:10] LABS: Urine Appearance Cloudy; Urine Bacteria Absent (Absent); Urine Bilirubin Negative (Negative); Urine Blood 3+ (Negative); Urine Color Yellow; Urine Glucose Negative (Negative); Urine Ketones Negative (Negative); Urine Nitrite Negative (Negative); Urine Protein 1+(30 mg/dL) (Negative); Urine Red Blood Cell 3+(>10/hpf) (Absent); Urine Specific Gravity 1.033 (1.010-1.030); Urine Squamous Epithelial Cell Present (Absent); Urine Urobilinogen Negative (Negative); Urine White Blood Cell Absent (Absent)
[2019-01-23 02:37] VITALS: BP 145/71
== END 2019-01-23 02:36 | disposition home or self-care (01) ==
LOC: ED 21:05
DX: R51 Headache (principal); R11.0 Nausea; H53.149 Visual discomfort, unspecified; M54.2 Cervicalgia; R10.84 Generalized abdominal pain; F32.9 Major depressive disorder, single episode, unspecified; F17.290 Nicotine dependence, other tobacco product, uncomplicated
CPT/HCPCS: 36415; 80053; 81003; 81015; 83690; 83735; 85025; 86140; 96361; 96374; 96375; 99282; J0780; J1200; J1885; J2060

== ENCOUNTER 2019-04-11 20:20 | Emergency (ER) | payer MEDICARE, MEDICAID ==
[2019-04-11] MEDS ORDERED: Acetaminophen TAB* 325 MG PO ONE (20:39)
--- NOTE | 2019-04-11 20:51 | ED ---
Lower Extremity - HPI Summary HPI Summary: 29 year old F presenting to [facility] brought in by EMS complains of right ankle pain since yesterday 04/10/19 after tripping on a curb when exiting a bus. The patient could only walk on the tip of her toes today. Pt took 2x250 mg ibuprofen today which helped to some relief. Denies any numbness in the foot. Hx of frequent panic attacks and depression. SgHx of cholecystectomy and . NKDA. Pt doesn't smoke, uses alcohol occasionally, and smokes marijuana. The patient rates the pain 10/10 in severity. Symptoms aggravated by applying pressure on foot or movement with noted decreased ROM. Symptoms alleviated by ibuprofen. Medications reviewed and allergies noted. - History of Current Complaint Chief Complaint: EDExtremityLower Stated Complaint: RIGHT ANKLE INJURY PER EMS Time Seen by Provider: 04/11/19 20:31 Hx Obtained From: Patient Mechanism Of Injury: Twisted - Tripped on curb Onset of Pain: Immediate, Hours - Since yeterday Onset/Duration: Hours - since yesterday Severity Initially: Severe Severity Currently: Severe Pain Intensity: 10 Pain Scale Used: 0-10 Numeric Timing: Constant Location: Is Discrete @ - right ankle Associated Signs And Symptoms: Positive: Negative Aggravating Factor(s): Standing, Ambulation, Movement Alleviating Factor(s): OTC Meds - ibuprofen Able to Bear Weight: Yes - limited weight - Allergies/Home Medications Allergies/Adverse Reactions: Allergies Allergy/AdvReac Type Severity Reaction Status Date / Time No Known Allergies Allergy Verified 01/23/19 01:55 PMH/Surg Hx/FS Hx/Imm Hx Endocrine/Hematology History: Denies: Hx Diabetes Cardiovascular History: Denies: Hx Hypertension History: Denies: Hx Dialysis Sensory History: Denies: Hx Eye Prosthesis, Hx Legally Blind, Hx Deafness Opthamlomology History: Denies: Hx Eye Prosthesis, Hx Legally Blind Neurological History: Denies: Hx CVA, Hx Seizures Psychiatric History: Reports: Hx Anxiety, Hx Attention Deficit Hyperactivity Disorder, Hx Depression - Surgical History Surgical History: Yes Surgery Procedure, Year, and Place: CHOLECYSTECTOMY Infectious Disease History: No Infectious Disease History: Denies: Traveled Outside the [place] in Last 30 Days - Family History Known Family History: Positive: Cardiac Disease, Hypertension - Social History Alcohol Use: Occasionally Hx Substance Use: Yes Substance Use Type: Reports: Marijuana Substance Use Comment - Amount & Last Used: daily Hx Tobacco Use: Yes Smoking Status (MU): Light Every Day Tobacco Smoker Type: Cigars Review of Systems Positive: Decreased ROM - right ankle, Other - right ankle pain Negative: Numbness - in right foot All Other Systems Reviewed And Are Negative: Yes Physical Exam - Summary Physical Exam Summary: Constitutional: Well-developed, Well-nourished, Alert. (-) Distressed Skin: Warm, Dry HENT: Normocephalic; Atraumatic Eyes: Conjunctiva normal Neck: Musculoskeletal ROM normal neck. (-) JVD, (-) Stridor, (-) Tracheal deviation Cardio: Rhythm regular, rate normal, Heart sounds normal; Intact distal pulses; Radial pulses are 2+ and symmetric. (-) Murmur Pulmonary/Chest wall: Effort normal. (-) Respiratory distress, (-) Wheezes, (-) Rales Abd: Soft, (-) tenderness, (-) Distension, (-) Guarding, (-) Rebound Musculoskeletal: Tenderness on dorsal side of right foot with no deformity, No proximal fibula/tibia tenderness, Limited ROM at ankle Lymph: (-) Cervical adenopathy Neuro: Alert, Oriented x3 Psych: Mood and affect Normal Triage Information Reviewed: Yes Vital Signs On Initial Exam: Initial Vitals Temp Pulse Resp BP Pulse Ox 98.5 F 81 16 146/92 98 04/11/19 20:30 04/11/19 20:30 04/11/19 20:30 04/11/19 20:30 04/11/19 20:30 Vital Signs Reviewed: Yes Procedures - Sedation Patient Received Moderate/Deep Sedation with Procedure: No Diagnostics - Vital Signs Vital Signs Temp Pulse Resp BP Pulse Ox 04/11/19 20:30 98.5 F 81 16 146/92 98 - Laboratory Lab Statement: Any lab studies that have been ordered have been reviewed, and results considered in the medical decision making process. - Radiology Foot X Ray Radiology Interpretation Completed By: ED Physician Summary of Radiographic Findings: Impression: Negative foot fracture. ED physician has interpreted this report. Pending official report. Lower Extremity Course/Dx - Course Course Of Treatment: Patient is here one day after rolling her right ankle. Patient has been able to ambulate with difficulty. Patient has tenderness in her mid foot so an x-ray of her foot was performed which showed no evidence of fracture per my read. Patient is placed in an Walt wrap and given conservative treatment management. - Diagnoses Provider Diagnoses: Right ankle sprain Discharge ED - Sign-Out/Discharge Documenting (check all that apply): Patient Departure - discharge - Discharge Plan Condition: Stable Disposition: HOME Patient Education Materials: Ankle Sprain (ED) Forms: *Work Release Referrals: [facility] [Outside] - 3 Days Additional Instructions: PLEASE RETURN TO EMERGENCY DEPARTMENT FOR ANY NEW OR WORSENING SYMPTOMS. Use Tylenol and Ibuprofen for pain as needed, rest, ice, use compression, and elevate foot like we talked about. You can put weight on the foot but don't push yourself till it feels better. Please follow up with your primary care physician within 3 days. - Billing Disposition and Condition Condition: STABLE Disposition: Home - Attestation Statements Document Initiated by Jo: Yes Documenting Scribe: Vicky Elder Provider For Whom Jo is Documenting (Include Credential): Dr. Jef Robert MD Scribe Attestation: I, Vicky Elder, scribed for Dr. Jef Robert MD on 04/11/19 at 2143. Scribe Documentation Reviewed: Yes Provider Attestation: The documentation as recorded by the Vicky hernandez accurately reflects the service I personally performed and the decisions made by me, Dr. Jef Robert MD Status of Scribangus Document: Viewed
[2019-04-11 21:35] VITALS: BP 145/74
== END 2019-04-11 21:33 | disposition home or self-care (01) ==
LOC: ED 20:20
DX: S93.401A Sprain of unspecified ligament of right ankle, initial encounter (principal); W22.8XXA Striking against or struck by other objects, initial encounter; Y92.480 Sidewalk as the place of occurrence of the external cause; F17.210 Nicotine dependence, cigarettes, uncomplicated
CPT/HCPCS: 99282; A9270-GY

== ENCOUNTER 2019-05-06 03:59 | Emergency (ER) | payer MEDICARE, MEDICAID ==
[2019-05-06] MEDS ORDERED: LORazepam TAB(*) 1 MG PO ONE (05:49)
--- NOTE | 2019-05-06 05:50 | ED ---
HPI Chest Pain - HPI Summary HPI Summary: Pt. is a 29 y.o female who presents to the ER with complaints of anxiety, chest pain, and SOB that started just prior to arrival. Pt. states her child's father was calling her and eventually showed up to her house giving her "panic attack. " Pt. states she has had similar episodes in the past. Currently on Prozac. Pt. denies SI and HI. Past hx of obesity. Sxs are moderate in severity. No current modifying factors. Pt. notes daughter's father will not leave her house and that she does not feel safe returning home. - History of Current Complaint Chief Complaint: EDChestPainROMI Time Seen by Provider: 05/06/19 05:35 Hx Obtained From: Patient Pain Intensity: 10 - Allergy/Home Medications Allergies/Adverse Reactions: Allergies Allergy/AdvReac Type Severity Reaction Status Date / Time No Known Allergies Allergy Verified 05/06/19 04:02 PMH/Surg Hx/FS Hx/Imm Hx Previously Healthy: Yes Endocrine/Hematology History: Denies: Hx Diabetes Cardiovascular History: Denies: Hx Hypertension History: Denies: Hx Dialysis Sensory History: Denies: Hx Eye Prosthesis, Hx Legally Blind, Hx Deafness Opthamlomology History: Denies: Hx Eye Prosthesis, Hx Legally Blind Neurological History: Denies: Hx CVA, Hx Seizures Psychiatric History: Reports: Hx Anxiety, Hx Attention Deficit Hyperactivity Disorder, Hx Depression - Surgical History Surgery Procedure, Year, and Place: CHOLECYSTECTOMY - Immunization History Date of Tetanus Vaccine: unk Date of Influenza Vaccine: none Infectious Disease History: No Infectious Disease History: Denies: Traveled Outside the [place] in Last 30 Days - Family History Known Family History: Positive: Cardiac Disease, Hypertension - Social History Occupation: Unemployed Lives: With Family Alcohol Use: Weekly Hx Substance Use: Yes Substance Use Type: Reports: Marijuana Substance Use Comment - Amount & Last Used: daily Hx Tobacco Use: Yes Smoking Status (MU): Former Smoker Type: Cigars Review of Systems Positive: Chest Pain Positive: Shortness Of Breath. Negative: Cough Neurological: Negative Positive: Anxious All Other Systems Reviewed And Are Negative: Yes Physical Exam Triage Information Reviewed: Yes Vital Signs On Initial Exam: Initial Vitals Temp Pulse Resp BP Pulse Ox 97 F 91 18 156/106 99 05/06/19 04:01 05/06/19 04:01 05/06/19 04:01 05/06/19 04:01 05/06/19 04:01 Vital Signs Reviewed: Yes Appearance: Positive: Well-Appearing - Pt. sitting up in bed in NAD. C/O 10/10 chest pain. Daughter present. Skin: Positive: Warm, Dry Head/Face: Positive: Normal Head/Face Inspection Eyes: Positive: Normal, EOMI, MAVIS Neck: Positive: Supple Respiratory/Lung Sounds: Positive: Clear to Auscultation, Breath Sounds Present Cardiovascular: Positive: Normal, RRR Neurological: Positive: Normal, CN Intact II-III Psychiatric: Positive: Affect/Mood Appropriate Procedures - Sedation Patient Received Moderate/Deep Sedation with Procedure: No Diagnostics - Vital Signs Vital Signs Temp Pulse Resp BP Pulse Ox 05/06/19 05:34 131/69 05/06/19 05:04 96 134/101 98 05/06/19 05:00 104 98 05/06/19 04:34 84 122/97 99 05/06/19 04:04 91 156/106 100 05/06/19 04:03 95 99 05/06/19 04:01 97 F 91 18 156/106 99 - Laboratory Lab Statement: Any lab studies that have been ordered have been reviewed, and results considered in the medical decision making process. Chest Pain Course/Dx - Course Course Of Treatment: Pt. presenting with c/o cp, sob and anxiety. VS stable. Given a dose of ativan for anxiety. ECG done at 0712 shows a sinus rhythm of 73bpm, normal axis, appropriate intervals, no ST elevation or depression. CXR negative for acute findings. Pt. requesting to talk to counselor. Denies SI or HI. Pt. evaluated by and given outpt. resources. Pt. feeling better and comfortable with dc. To call her pcp tomorrow for close f.u apt. To continue home medication as directed. Will return to er if sxs change or worsen. - Diagnoses Provider Diagnoses: Anxiety, Atypical chest pain Discharge ED - Sign-Out/Discharge Documenting (check all that apply): Patient Departure - Discharge Plan Condition: Improved Disposition: HOME Patient Education Materials: Chest Pain (ED), Anxiety (ED) Referrals: [facility] [Outside] Additional Instructions: Call your PCP tomorrow for a close follow up appointment Continue home medications as directed Return to ER if symptoms change or worsen - Billing Disposition and Condition Condition: IMPROVED Disposition: Home
[2019-05-06 08:41] VITALS: BP 108/67
== END 2019-05-06 08:45 | disposition home or self-care (01) ==
LOC: ED 03:59
DX: F41.9 Anxiety disorder, unspecified (principal); F90.9 Attention-deficit hyperactivity disorder, unspecified type; F32.9 Major depressive disorder, single episode, unspecified; Z90.49 Acquired absence of other specified parts of digestive tract; Z87.891 Personal history of nicotine dependence; Z79.899 Other long term (current) drug therapy
CPT/HCPCS: 71045; 93005; 99284; A9270-GY

== ENCOUNTER 2019-05-29 06:51 | Emergency (ER) | payer MEDICARE, MEDICAID ==
[2019-05-29] MEDS ORDERED: Lidocaine 2% VISCOUS* 15 ML UDC PO ONE (07:00)
[2019-05-29] MEDS ORDERED: Ketorolac *IM* INJ* 60 MG/2 ML VIAL IM ONE (07:00)
[2019-05-29 08:22] LABS: Rapid Strep Molecular Negative (Negative)
--- NOTE | 2019-05-29 08:47 | ED ---
Throat Pain/Nasal Congestion - HPI Summary HPI Summary: Patient is a 29-year-old female with no significant past medical history ascending to the ED with acute onset shortness of breath, feeling of throat closing and throat pain since awakening this morning. She states she has never had this before. No history of strep throat. His any sick contacts. Denies any fevers, sweats, chills. Has never been diagnosed with KALI in the past. She called EMS to transport here here to the ED. - History of Current Complaint Chief Complaint: EDThroatPain Time Seen by Provider: 05/29/19 06:54 Hx Obtained From: Patient Onset/Duration: Sudden Onset Severity: Moderate Associated Signs And Symptoms: Positive: Dysphagia, Hoarseness. Negative: FB Sensation, Drooling, Wheezing, Sinus Discomfort, Nasal Discharge - Epiglottits Risk Factors Epiglottis Risk Factors: Negative - Allergies/Home Medications Allergies/Adverse Reactions: Allergies Allergy/AdvReac Type Severity Reaction Status Date / Time No Known Allergies Allergy Verified 05/29/19 06:59 PMH/Surg Hx/FS Hx/Imm Hx Previously Healthy: Yes Endocrine/Hematology History: Denies: Hx Diabetes Cardiovascular History: Denies: Hx Hypertension History: Denies: Hx Dialysis Sensory History: Denies: Hx Eye Prosthesis, Hx Legally Blind, Hx Deafness Opthamlomology History: Denies: Hx Eye Prosthesis, Hx Legally Blind Neurological History: Denies: Hx CVA, Hx Seizures Psychiatric History: Reports: Hx Anxiety, Hx Attention Deficit Hyperactivity Disorder, Hx Depression - Surgical History Surgery Procedure, Year, and Place: CHOLECYSTECTOMY - Immunization History Date of Tetanus Vaccine: unk Date of Influenza Vaccine: none Hx Pertussis Vaccination: No Immunizations Up to Date: Yes Infectious Disease History: No Infectious Disease History: Denies: Traveled Outside the [place] in Last 30 Days - Family History Known Family History: Positive: Cardiac Disease, Hypertension - Social History Occupation: Employed Full-time Lives: With Family Alcohol Use: Occasionally Hx Substance Use: Yes Substance Use Type: Reports: Marijuana Substance Use Comment - Amount & Last Used: PRN Hx Tobacco Use: Yes Smoking Status (MU): Former Smoker Type: Cigars Review of Systems Negative: Fever, Chills, Fatigue, Skin Diaphoresis Positive: Sore Throat Negative: Palpitations, Chest Pain Negative: Shortness Of Breath, Cough Genitourinary: Negative Positive: no symptoms reported, see HPI Negative: Arthralgia, Myalgia Skin: Negative All Other Systems Reviewed And Are Negative: Yes Physical Exam Triage Information Reviewed: Yes Vital Signs On Initial Exam: Initial Vitals Temp Pulse Resp BP Pulse Ox 98.1 F 75 22 144/95 95 05/29/19 06:55 05/29/19 06:55 05/29/19 06:55 05/29/19 06:55 05/29/19 06:55 Vital Signs Reviewed: Yes Appearance: Positive: Well-Appearing, Well-Nourished Skin: Positive: Warm, Skin Color Reflects Adequate Perfusion Head/Face: Positive: Normal Head/Face Inspection Eyes: Positive: EOMI, MAVIS, Conjunctiva Clear ENT: Positive: Pharyngeal erythema. Negative: Tonsillar swelling, Tonsillar exudate, Hoarse voice, Dental tenderness, Sinus tenderness Neck: Positive: Supple, No Lymphadenopathy Respiratory/Lung Sounds: Positive: Clear to Auscultation, Breath Sounds Present Cardiovascular: Positive: RRR, Pulses are Symmetrical in both Upper and Lower Extremities Musculoskeletal: Positive: Normal, Strength/ROM Intact Neurological: Positive: Alert, Oriented to Person Place, Time, Speech Normal Psychiatric: Positive: Normal, Affect/Mood Appropriate Procedures - Sedation Patient Received Moderate/Deep Sedation with Procedure: No Diagnostics - Vital Signs Vital Signs Temp Pulse Resp BP Pulse Ox 05/29/19 06:55 98.1 F 75 22 144/95 95 - Laboratory Lab Results: Lab Results 05/29/19 Range/Units 08:05 Group A Strep Rapid Negative (Negative) Lab Statement: Any lab studies that have been ordered have been reviewed, and results considered in the medical decision making process. EENT Course/Dx - Course Course Of Treatment: Patient appears to be in no acute distress on arrival. She does not appear to be in respiratory distress, breathing heavily and denies any chest pain this time. Lungs are CTA. RRR. mild amount of pharyngeal erythema. No bilateral tonsillar exudates. Vital signs are stable. Patient is given lidocaine, prednisone and Toradol with good relief. Strep swab negative. Pt discharged with pharyngitis dx. NAD on discharge. - Differential Diagnoses Differential Diagnoses: Other - Pharyngitis, tonsillitis, strep throat, shortness of breath, allergies, KALI - Diagnoses Provider Diagnoses: Pharyngitis Discharge ED - Sign-Out/Discharge Documenting (check all that apply): Patient Departure - Discharge Plan Condition: Stable Disposition: HOME Prescriptions: Ketorolac TAB * [Toradol TAB *] 10 mg PO Q6H #10 tab predniSONE 50 mg TAB [Deltasone 50 mg TAB] 50 mg PO DAILY #3 tab MDD 1 Patient Education Materials: Pharyngitis (ED) Forms: *Work Release Referrals: No Primary Care Phys,NOPCP [Primary Care Provider] - Additional Instructions: toradol up to four times daily prednisone once daily x 3 days - start this tomorrow - Billing Disposition and Condition Condition: STABLE Disposition: Home
[2019-05-29 09:54] VITALS: BP 124/82
== END 2019-05-29 10:00 | disposition home or self-care (01) ==
LOC: ED 06:51
DX: J02.9 Acute pharyngitis, unspecified (principal); F41.9 Anxiety disorder, unspecified; F90.9 Attention-deficit hyperactivity disorder, unspecified type; Z90.49 Acquired absence of other specified parts of digestive tract; Z87.891 Personal history of nicotine dependence
CPT/HCPCS: 87651; 96372; 99282; J1885; J7512

== ENCOUNTER 2019-06-13 20:27 | Emergency (ER) | payer MEDICARE, MEDICAID ==
[2019-06-13 20:35] VITALS: BP 147/96
[2019-06-13] MEDS ORDERED: Ketorolac INJ* 30 MG/ML 1 ML VIAL IV PUSH ONE (20:44)
[2019-06-13] MEDS ORDERED: NS 0.9% 1000 ML** 1,000 ML IV ONE (20:44)
[2019-06-13] MEDS ORDERED: Ondansetron INJ* 2 MG/ML VIAL IV ONE (20:44)
--- NOTE | 2019-06-13 20:47 | ED ---
Influenza-Like Illness - HPI Summary HPI Summary: 29 year old F presenting to [facility] complains of cough x3 days, and fatigue, fever , chills, myaglia, headache, nausea/vomiting/diarrhea, abdominal pain since today 06/13/2019. Patient states she has not been around anyone with influenza recently. The patient rates the pain 10/10 in severity. Symptoms aggravated by ambulation, movement, bright lights. Symptoms alleviated by nothing. Has been taking Tylenol, Motrin, Excedrin with no relief, last taken 3 hours ago. Medications reviewed. PMHx reviewed. - History of Current Complaint Chief Complaint: EDFluSymptoms Time Seen by Provider: 06/13/19 20:37 Hx Obtained From: Patient Onset/Duration: Lasting Days, Still Present Severity: Severe - 02/08 - Allergy/Home Medications Allergies/Adverse Reactions: Allergies Allergy/AdvReac Type Severity Reaction Status Date / Time No Known Allergies Allergy Verified 06/13/19 20:35 PMH/Surg Hx/FS Hx/Imm Hx Endocrine/Hematology History: Denies: Hx Diabetes Cardiovascular History: Denies: Hx Hypertension Respiratory History: Denies: Hx Asthma Sensory History: Reports: Hx Contacts or Glasses Opthamlomology History: Reports: Hx Contacts or Glasses Neurological History: Denies: Hx Seizures Psychiatric History: Reports: Hx Anxiety, Hx Attention Deficit Hyperactivity Disorder, Hx Depression - Surgical History Surgery Procedure, Year, and Place: CHOLECYSTECTOMY - Immunization History Date of Tetanus Vaccine: unk Date of Influenza Vaccine: none Infectious Disease History: No Infectious Disease History: Denies: Traveled Outside the [place] in Last 30 Days - Family History Known Family History: Positive: Cardiac Disease, Hypertension - Social History Alcohol Use: Occasionally Hx Substance Use: Yes Substance Use Type: Reports: Marijuana Substance Use Comment - Amount & Last Used: PRN Hx Tobacco Use: Yes Smoking Status (MU): Former Smoker Type: Cigars Review of Systems Positive: Fever, Chills, Fatigue Positive: Cough Positive: Abdominal Pain, Vomiting, Diarrhea, Nausea Positive: Myalgia Positive: Headache All Other Systems Reviewed And Are Negative: Yes Physical Exam - Summary Physical Exam Summary: Constitutional: Well-developed, Well-nourished, Alert. (-) Distressed Skin: Warm, Dry HENT: Normocephalic; Atraumatic Eyes: Conjunctiva normal Neck: Musculoskeletal ROM normal neck. (-) JVD, (-) Stridor, (-) Tracheal deviation Cardio: Rhythm regular, rate normal, Heart sounds normal; Intact distal pulses; The pedal pulses are 2+ and symmetric. Radial pulses are 2+ and symmetric. (-) Murmur Pulmonary/Chest wall: Effort normal. (-) Respiratory distress, (-) Wheezes, (-) Rales Abd: Soft, (-) tenderness, (-) Distension, (-) Guarding, (-) Rebound Musculoskeletal: (-) Edema Lymph: (-) Cervical adenopathy Neuro: Alert, Oriented x3; No meningeal signs Psych: Mood and affect Normal Triage Information Reviewed: Yes Vital Signs On Initial Exam: Initial Vitals Temp Pulse Resp BP Pulse Ox 99.8 F 92 17 147/96 97 06/13/19 20:27 06/13/19 20:27 06/13/19 20:27 06/13/19 20:27 06/13/19 20:27 Vital Signs Reviewed: Yes Procedures - Sedation Patient Received Moderate/Deep Sedation with Procedure: No Diagnostics - Vital Signs Vital Signs Temp Pulse Resp BP Pulse Ox 06/13/19 20:27 99.8 F 92 17 147/96 97 - Laboratory Lab Statement: Any lab studies that have been ordered have been reviewed, and results considered in the medical decision making process. Re-Evaluation - Re-Evaluation First Eval Re-Evaluation Time: 21:48 Change: Improved Flu Symptom Course/Dx - Course Course Of Treatment: 29 y/o F presents with cough x3 days, and fatigue, fever, chills, myaglia, headache, nausea/vomiting/diarrhea, abdominal pain since today 06/13/2019. Patient has been taking Tylenol, Motrin, Excedrin with no relief, last taken 3 hours ago. Influenza A and B negative. In the ED course, the patient was given normal saline fluids, Zofran, Toradol. Patient will be discharged home with follow up from [facility] in 2-3 days. Patient was instructed to return to Emergency Department for new or worsening symptoms. Patient understands and is agreeable to this plan. - Diagnoses Provider Diagnoses: Viral syndrome Discharge ED - Sign-Out/Discharge Documenting (check all that apply): Patient Departure - Discharge Plan Condition: Stable Disposition: HOME Patient Education Materials: Viral Syndrome (ED) Forms: *Work Release Referrals: [facility] [Outside] - 2 Days Additional Instructions: Follow up with [facility] in 2-3 days. Return to the Emergency Department for new or worsening symptoms. - Billing Disposition and Condition Condition: STABLE Disposition: Home - Attestation Statements Document Initiated by Parrisibe: Yes Documenting Scribe: Mallory Owen Provider For Whom Parrisibe is Documenting (Include Credential): Mathew Duarte DO Scribe Attestation: Mallory Dillon, scribed for Mathew Duarte DO on 06/15/19 at 0803. Scribe Documentation Reviewed: Yes Provider Attestation: The documentation as recorded by the Mallory hernandez accurately reflects the service I personally performed and the decisions made by Mathew pinzon DO Status of Scribe Document: Viewed
[2019-06-13 21:11] LABS: Influenza A Molecular Negative (Negative); Influenza B Molecular Negative (Negative)
== END 2019-06-13 22:05 | disposition home or self-care (01) ==
LOC: ED 20:27
DX: B34.9 Viral infection, unspecified (principal); R05 Cough; R53.83 Other fatigue; R10.9 Unspecified abdominal pain; R11.2 Nausea with vomiting, unspecified; R19.7 Diarrhea, unspecified; Z87.891 Personal history of nicotine dependence; F41.9 Anxiety disorder, unspecified; F32.9 Major depressive disorder, single episode, unspecified
CPT/HCPCS: 96361; 96374; 96375; 99282; J1885; J2405